=== PATIENT | male | born 1955 | race Caucasian/White ===

== ENCOUNTER 2019-08-31 10:35 | Emergency (ER) | payer MEDICARE, MEDICAID, SELFPAY ==
[2019-08-31 10:45] VITALS: BP 118/66; PULSE 99; RESP 20; TEMP 37.6; O2SAT 95
--- NOTE | 2019-08-31 10:52 | ED.URI ---
HPI - URI/Sore Throat General Chief Complaint: Upper Respiratory Infection Stated Complaint: cough & Congestion dizzy Time Seen by Provider: 08/31/19 10:52 Source: patient History of Present Illness HPI Narrative: PATIENT PRESENTS WITH A ONE DAY HISTORY OF COUGH, NASAL CONGESTION, AND BODY ACHES. NORMALLY HEALTHY. STATES DOES NOT GET ILL OFTEN AND DID NOT GET FLU SHOT THIS YEAR. Patient states his cough keeps him up at night and is a dry hacking nonproductive cough. Related Data Home Medications Medication Instructions Recorded Confirmed allopurinol 300 mg PO DAILY 08/31/19 08/31/19 apixaban [Eliquis] 5 mg PO BID 08/31/19 08/31/19 carvedilol 25 mg PO DAILY 08/31/19 08/31/19 gabapentin 300 mg PO BID 08/31/19 08/31/19 lovastatin 20 mg PO DAILY 08/31/19 08/31/19 omeprazole 20 mg PO DAILY 08/31/19 08/31/19 Allergies Allergy/AdvReac Type Severity Reaction Status Date / Time No Known Allergies Allergy Verified 08/31/19 10:52 Review of Systems Review of Systems: Narrative: CONSTITUTIONAL: Denies chills, or sweats. Reports fever and generalized body aches EYES: Denies visual changes, redness, or discharge. ENT: Denies otalgia. Reports nasal congestion runny nose and sore throat CARDIOVASCULAR: Denies chest pain, palpitations, or edema. RESPIRATORY: Denies dyspnea. Reports occasional cough GASTROINTESTINAL: Denies abdominal pain, nausea, vomiting, or diarrhea. GENITOURINARY: Denies dysuria or hematuria. SKIN: Denies rash or itching. MUSCULOSKELETAL: Denies back pain, joint pain, or myalgia. Reports generalized body aches NEUROLOGIC: Denies headache, numbness, or weakness. PSYCHIATRIC: Denies anxiety or depression. All systems reviewed & are unremarkable except as noted in HPI and below PMFSH Comments At time of signature, agree with nursing past medical, surgical, social and family history. There is no relevant family history pertinent to the presenting complaint Exam Narrative: Exam Narrative: The patient is a well-developed, well-nourished in no acute distress. SKIN: Skin is warm and dry without erythema, swelling or exudate. There is good turgor. No tenting. HEAD: Atraumatic. Normocephalic. No temporal or scalp tenderness. EYES: Moist and bright. Sclera and conjunctivae normal. No discharge. PERRLA. Extraocular motions intact. Gross visual acuity intact. EARS: Pinna is normal shape and contour. Clear external auditory canals. TM pearly layton with good cone of light, no erythema or suppuration. Bilateral cerumen noted no gross hearing deficit. NOSE: pink, moist mucosa with good air movement. Clear rhinorrhea without nasal flaring. Septum midline. Mouth: moist mucous membranes. MILD MAXILARY SINUS PRESSURE\ THROAT; mild erythema noted to posterior oropharynx with moderate postnasal drainage. Without exudate or ulceration.. Uvula midline. Normal movement of soft palate. NECK: Supple and nontender with full range of motion without discomfort. No meningeal signs. LUNGS: Equal and bilateral breath sounds without wheezes, rales or rhonchi. CHEST: The chest wall is without retractions or use of accessory muscles. HEART: Has a regular rate and rhythm without murmur, gallops, click or rub. ABDOMEN: Soft, nontender with positive active bowel sounds. No rebound tenderness. EXTREMITIES: Without cyanosis, clubbing or edema. Equal 2+ distal pulses and 2 second capillary refill noted. NEUROLOGIC: alert, active, . The patient moves all extremities with normal muscle strength. Normal muscle tone is noted. Normal coordination is noted. NO focal neurological findings noted. Course Vital Signs Vital signs: Vital Signs Temperature 37.6 C H 08/31/19 10:45 Pulse Rate 99 08/31/19 10:45 Respiratory Rate 20 08/31/19 10:45 Blood Pressure 118/66 08/31/19 10:45 Pulse Oximetry 95 08/31/19 10:45 Temperature 37.6 C H 08/31/19 10:45 Pulse Rate 99 08/31/19 10:45 Respiratory Rate 20 08/31/19 10:45 Blood Pressure 118/66 0
== END 2019-08-31 11:12 | disposition home or self-care (01) ==
PROVIDERS: Emergency Provider Nurse Practitioner Family
DX: J06.9 Acute upper respiratory infection, unspecified (principal); B34.9 Viral infection, unspecified; J01.00 Acute maxillary sinusitis, unspecified; J40 Bronchitis, not specified as acute or chronic; I48.91 Unspecified atrial fibrillation; E78.00 Pure hypercholesterolemia, unspecified; I10 Essential (primary) hypertension; K21.9 Gastro-esophageal reflux disease without esophagitis; M10.9 Gout, unspecified; Z85.828 Personal history of other malignant neoplasm of skin
CPT/HCPCS: 87804; 99213; G0463